=== PATIENT | male | born 1965 | race African-American/Black ===

== ENCOUNTER 2016-12-01 05:43 | Day surgery (SDC) | payer BC ==
[~2016-12-01] VITALS: Ht 175.3 cm; Wt 103.4 kg
[~2016-12-01 05:43] MED LIST: ALBUTEROL2.5 MG/0.1 INH
[2016-12-01 08:06] VITALS: BP 122/85
[2016-12-01] MEDS ORDERED: NORCO 5-325 TA1 EACH PO (13:39)
[2016-12-01 14:15] VITALS: BP 122/85
== END 2016-12-01 16:10 | disposition home or self-care (01) ==
LOC: TBA 05:43 → OR 05:43 → TBA 05:44 → OR 12:46
DX: K42.0 Umbilical hernia with obstruction, without gangrene (principal); J45.909 Unspecified asthma, uncomplicated; Z98.890 Other specified postprocedural states
CPT/HCPCS: 50010; 50101; 50386; 50417; 54118; 56524; 56525; 56526; 62110; 62900; 70005